=== PATIENT | female | born 1980 | race Caucasian/White ===

== ENCOUNTER 2017-04-22 22:04 | Emergency (ER) | payer MEDICAID ==
[2017-04-22 22:33] VITALS: BMI 34.2
[2017-04-22 22:38] VITALS: BP 114/76; PULSE 103; RESP 20; TEMP 98.2; O2SAT 97
[2017-04-22] MEDS ORDERED: Albuterol-Ipratrop 3 mg / 0.5 (3 ml) UD IH STA (23:07)
--- NOTE | 2017-04-22 23:19 | ED PDOC ---
Arrival/HPI <Bertin Fitzgerald - Last Filed: 04/23/17 00:08> - General Historian: Patient - History of Present Illness Time/Duration: Prior to Arrival Symptom Onset: Sudden Context: Home <Natalya Lantigua - Last Filed: 04/23/17 05:15> - General Chief Complaint: Medical Clearance Time Seen by Provider: 04/22/17 22:15 - History of Present Illness Narrative History of Present Illness (Text): 04/22/17 23:12 36 yo female with PMH of asthma, anxiety, kidney stones presented with ankle swelling, lower back pain. Patient states that this evening she had lower back muscle cramp and leg cramp, when she was walking to stretch out her muscle she noticed that her legs were swollen. Patient states that also had an asthma attach today, she took her nebulizer breathing treatment which helped but she continues to feel SOB. She also reports subjective fever at home yesterday and took Tylenol. She also reports burning with urination. She states she was recently in [facility] for UTI. Patient is 24 wweeks gestations. PMD: none (Natalya Lantigua) Past Medical History - Provider Review Nursing Documentation Reviewed: Yes - Infectious Disease Hx of Infectious Diseases: None - Tetanus Immunization Tetanus Immunization: Unknown - Cardiac Hx Hypertension: Yes - Pulmonary Hx Respiratory Disorders: Yes Hx Asthma: Yes Hx Bronchitis: Yes - Neurological Hx Neurological Disorder: Yes Hx Migraine: Yes - HEENT Hx HEENT Disorder: No - Renal Hx Renal Disorder: Yes Hx Kidney Stones: Yes - Endocrine/Metabolic Hx Endocrine Disorders: No - Hematological/Oncological Hx Blood Disorders: No - Integumentary Hx Dermatological Disorder: No - Musculoskeletal/Rheumatological Hx Musculoskeletal Disorders: Yes Hx Arthritis: Yes - Gastrointestinal Hx Gastrointestinal Disorders: No Other/Comment: IBS - Genitourinary/Gynecological Hx Genitourinary Disorders: No - Psychiatric Hx Psychophysiologic Disorder: Yes Hx Anxiety: Yes Hx Depression: Yes Hx Post Traumatic Stress Disorder: Yes Hx Substance Use: No (denies) - Surgical History Hx Section: Yes Hx Orthopedic Surgery: Yes (as a child) Other/Comment: kidney stone - Anesthesia Hx Anesthesia: Yes Hx Anesthesia Reactions: No Hx Malignant Hyperthermia: No - Suicidal Assessment Feels Threatened In Home Enviroment: Yes <Natalya Lantigua - Last Filed: 04/23/17 05:15> Family/Social History - Physician Review Nursing Documentation Reviewed: Yes Family/Social History: Diabetes (MOTHER) Smoking Status: Former Smoker Hx Alcohol Use: No (denies) Hx Substance Use: No (denies) <GrzegorzNatalya - Last Filed: 04/23/17 05:15> Allergies/Home Meds <Bertin Fitzgerald - Last Filed: 04/23/17 00:08> <Natalya Lantigua - Last Filed: 04/23/17 05:15> Allergies/Adverse Reactions: Allergies ciprofloxacin [From Cipro] Allergy (Verified 07/06/16 17:48) SWELLING ciprofloxacin HCl [From Cipro] Allergy (Verified 07/06/16 17:48) SWELLING nitrofurantoin [From Macrobid] Allergy (Verified 07/06/16 17:48) RASH nitrofurantoin macrocrystalline [From Macrobid] Allergy (Verified 07/06/16 17:48 ) RASH Penicillins Allergy (Verified 04/22/17 22:34) VOMITING perfume Adverse Reaction (Uncoded 07/06/16 17:48) SHORTNESS OF BREATH Home Medications: Home Meds Medication Instructions Recorded Confirmed Albuterol 0.083% [Albuterol 3 ml IH QID 04/22/17 04/22/17 Sulfate 3 Ml] DiphenhydrAMINE [Benadryl] 50 mg PO DAILY 04/22/17 04/22/17 Fluticasone/Salmeterol [Advair 1 each IH DAILY 04/22/17 04/22/17 250-50 Diskus] Pnv No.95/Ferrous Fum/Folic AC 1 each PO DAILY 04/22/17 04/22/17 [ Vitamin Tablet] Prednisone [Deltasone] 60 mg PO DAILY 04/22/17 04/22/17 Review of Systems - Review of Systems Constitutional: Fevers. absent: Fatigue Eyes: Normal. absent: Vision Changes ENT: Normal. absent: Sore Throat, Rhinorrhea, Sinus Congestion Respiratory: SOB, Cough, Wheezing Cardiovascular: Normal, Edema. absent: Chest Pain, Calf Pain, Orthopnea, Syncope Gastrointestinal: Normal. absent: Abdominal Pain, Constipation, Diarrhea, Nausea, Vomiting Genitourinary Female: Dysuria. absent: Frequency, Hematuria Musculoskeletal: Back Pain. absent: Arthralgias, Myalgias Skin: Normal. absent: Rash, Pruritis, Ulcer Neurological: Normal. absent: Headache, Dizziness, Focal Weakness Endocrine: Normal. absent: Diaphoresis Hemo/Lymphatic: Normal. absent: Easy Bleeding, Easy Bruising Psychiatric: Normal, Anxiety <Natalya Lantigua - Last Filed: 04/23/17 05:15> Physical Exam - Systems Exam Head: Present: Atraumatic, Normocephalic Pupils: Present: PERRL Extroacular Muscles: Present: EOMI. No: Gaze Palsy, Entrapment Conjunctiva: Present: Normal Mouth: Present: Moist Mucous Membranes Nose (External): Present: Atraumatic Neck: Present: Normal Range of Motion. No: MIDLINE TENDERNESS, Paraspinal Tenderness Respiratory/Chest: Present: Clear to Auscultation, Wheezes (MILD). No: Respiratory Distress, Accessory Muscle Use Cardiovascular: Present: Regular Rate and Rhythm, Normal S1, S2. No: Murmurs, Tachycardic, Bradycardic Abdomen: Present: Normal Bowel Sounds. No: Tenderness, Distention, Peritoneal Signs Back: Present: Normal Inspection. No: CVA Tenderness, Midline Tenderness, Paraspinal Tenderness, Pain with Leg Raise Upper Extremity: Present: Normal Inspection. No: Cyanosis, Edema, Tenderness, Swelling Lower Extremity: Present: Normal Inspection, NORMAL PULSES, Normal ROM, Swelling. No: Edema, CALF TENDERNESS, Tenderness Neurological: Present: GCS=15, CN II-XII Intact, Speech Normal Skin: Present: Warm, Dry, Normal Color. No: Rashes, Diaphoretic, Hot, Cold, Pale Psychiatric: Present: Alert, Oriented x 3, Normal Insight, Normal Concentration <Natalya Lantigua - Last Filed: 04/23/17 05:15> Vital Signs Temp Pulse Resp BP Pulse Ox 04/22/17 22:37 98.2 F 103 H 20 114/76 97 Medical Decision Making <Bertin Fitzgerald - Last Filed: 04/23/17 00:08> <Natalya Lantigua - Last Filed: 04/23/17 05:15> ED Course and Treatment: In agreement with resident note, which includes further HPI details. Patient was seen and evaluated with resident, came up with plan and treatment together. (Bertin Fitzgerald) 04/22/17 23:21 Impression: 36 yo female with PMH of asthma, anxiety, kidney stones presented with ankle swelling, lower back pain. Differential diagnosis includes but no limited to: - asthma, muscle spasm plan - duonebs - UA - reassure and reassess 04/23/17 01:14 - UA is positive, urine cultures order. Patient will receive keflex prescription. Patient states that she has taken zosyn previously before without complications. - - patient was advised to elevate leg to decrease swelling and to take Tylenol for pain relief. - Patient is to follow up with PCP in 1-2 days. (Natalya Lantigua) - Lab Interpretations Lab Results: Lab Results 04/22/17 23:57: Urine Color Yellow, Urine Appearance Sl cloudy, Urine pH 6.5, Ur Specific [place] 1.020, Urine Protein Trace H, Urine Glucose (UA) Negative, Urine Ketones Negative, Urine Blood Trace-lysed H, Urine Nitrate Positive H, Urine Bilirubin Negative, Urine Urobilinogen 0.2, Ur Leukocyte Esterase Moderate H, Urine RBC 0 - 2, Urine WBC 5 - 10, Ur Epithelial Cells 0 - 2, Urine Bacteria Mod - Medication Orders Current Medication Orders: Discontinued Medications Albuterol/Ipratropium (Duoneb 3 Mg/0.5 Mg (3 Ml) Ud) 3 ml IH STAT STA Stop: 04/22/17 23:08 Last Admin: 04/22/17 23:33 Dose: 3 ml - PA / SKILL TRAINING PROGRAM COORDINATOR / Resident Statement / has reviewed & agrees with the documentation as recorded. / has examined the patient and agrees with the treatment plan. <Bertin Fitzgerald - Last Filed: 04/23/17 00:08> Disposition/Present on Arrival <Bertin Fitzgerald - Last Filed: 04/23/17 00:08> - Present on Arrival Any Indicators Present on Arrival: No History of DVT/PE: No History of Uncontrolled Diabetes: No Urinary Catheter: No History of Decub. Ulcer: No History Surgical Site Infection Following: None - Disposition Have Diagnosis and Disposition been Completed?: Yes Disposition Time: 01:10 Patient Plan: Discharge <Natalya Lantigua - Last Filed: 04/23/17 05:15> - Disposition Diagnosis: UTI (urinary tract infection) Disposition: HOME/ ROUTINE Condition: GOOD Additional Instructions: Deborah Carty, thank you for letting us take care of you today. Your provider was Dr. Lantigua and Dr. Lala. You were treated for UTI. The emergency medical care you received today was directed at your acute symptoms. If you were prescribed any medication, please fill it and take as directed. It may take several days for your symptoms to resolve. Return to the Emergency Department if your symptoms worsen, do not improve, or if you have any other problems. Please contact your doctor or call one of the physicians/clinics you have been referred to that are listed on the Patient Visit Information form that is included in your discharge packet. Bring any paperwork you were given at discharge with you along with any medications you are taking to your follow up visit. Our treatment cannot replace ongoing medical care by a primary care provider (PCP) outside of the emergency department. Thank you for allowing the [facility] team to be part of your care today. If you had a urine culture: It will take several days for the results, if any change in treatment is needed we will contact you. Prescriptions: Cephalexin [Keflex] 500 mg PO BID #14 capsule Referrals: Maren Lentz MD [Primary Care Provider] - Follow up with primary
[2017-04-23 00:12] LABS: PH,URINE 6.5 (4.7-8.0); URINE BILIRUBIN NEGATIVE (NEGATIVE); URINE BLOOD TRACE-LYSED (NEGATIVE); URINE GLUCOSE (UA) NEGATIVE (NEGATIVE); URINE KETONE NEGATIVE (NEGATIVE); URINE LEUKOCYTE ESTERASE MODERATE Leu/uL (NEGATIVE); URINE PROTEIN TRACE mg/dL (<30 mg/dL); URINE UROBILINOGEN 0.2 E.U./dL (<1 E.U./dL)
[2017-04-23 00:14] LABS: URINE APPEARANCE SL CLOUDY (CLEAR); URINE COLOR YELLOW (YELLOW)
[2017-04-23 00:32] LABS: URINE BACTERIA MOD (NEG); URINE EPITHELIAL CELLS 0 - 2 /hpf (0-5); URINE RBC 0 - 2 /hpf (0-2)
== END 2017-04-23 01:25 | disposition home or self-care (01) ==
LOC: ED 22:04
DX: N39.0 Urinary tract infection, site not specified (principal)